=== PATIENT | male | born 1960 ===

== ENCOUNTER 2023-12-13 06:17 | Day surgery (SDC) | payer OTHER, SELFPAY ==
[2023-12-13 07:15] VITALS: BMI 20.8
[2023-12-13 07:16] VITALS: BMI 20.8
[2023-12-13 07:17] VITALS: BP 146/76
[2023-12-13 08:39] VITALS: BP 94/63
[2023-12-13 08:41] VITALS: BP 94/63
[2023-12-13 08:43] VITALS: BP 94/63
[2023-12-13 08:45] VITALS: BP 90/61
[2023-12-13 09:00] VITALS: BP 106/77
== END 2023-12-13 09:15 | disposition home or self-care (01) ==
LOC: GI 06:17
PROVIDERS: ATTENDING PHYSICIAN Internal Medicine Gastroenterology
DX: K83.8 Other specified diseases of biliary tract (principal); K86.89 Other specified diseases of pancreas; F11.90 Opioid use, unspecified, uncomplicated; K76.89 Other specified diseases of liver
CPT/HCPCS: 43237